=== PATIENT | female | born 1995 | race Caucasian/White ===

== ENCOUNTER 2017-07-14 12:35 | Day surgery (SDC) | payer OTHER ==
[2017-07-14 13:04] VITALS: BMI 32.9
[2017-07-14 13:11] VITALS: BP 127/67; TEMP 98.3
[2017-07-14 13:46] LABS: Bilirubin Negative (Negative); Blood, Urine Negative (Negative); Clarity CLOUDY (Clear); Glucose, Urine (Dipstick) 250 mg/dL (Negative); Leukocyte Negative (Negative); Nitrite Negative (Negative); Protein, Urine (Dipstick) Trace mg/dL (Neg-Trace); Specific Gravity, Urine 1.029 (1.002-1.036); pH, Urine 6.5 (5.0-9.0)
[2017-07-14 14:09] LABS: #Eosinphils 0.3 thou/uL (0.0-0.7); #Lymphocytes 2.3 thou/uL (1.20-3.40); #Monocytes 0.9 thou/uL (0.11-0.59); #Neutrophils 11.1 thou/uL (1.40-6.50); %Basophils 0.2 % (0.0-1.0); %Eosinophils 2.2 % (0.0-10.0); %Lymphocytes 15.7 % (21.0-51.0); %Monocytes 6.1 % (0.0-10.0); %Neutrophils 75.8 % (42.0-75.0); Hemoglobin 11.8 g/dL (12.0-16.0); Mean Corpuscular HGB CONC 34.6 g/dL (32.0-36.0); Mean Corpuscular Hemoglobin 29.1 pg (27.0-31.0); Mean Platelet Volume 7.3 fL (7.4-10.4); Platelet Count 202 thou/uL (130-400); RBC Distribution Width 12.3 % (11.5-14.5); Red Blood Cell (RBC) Count 4.05 mill/uL (4.20-5.40); White Blood Cell (WBC) Count 14.6 thou/uL (4.8-10.8)
[2017-07-14] MEDS ORDERED: Oxytocin 10 UNITS/ML VIAL ONE (16:13)
[2017-07-14 16:26] LABS: HBSAB Concentration 0.11 mIU/mL; Hep B Surf AB Non-Reactive (NonReactive)
[2017-07-14 16:27] LABS: HIV (1/2) Antibody/Antigen Non-Reactive (NonReactive); HIV 1/2 INDEX 0.23 S/CO (<1.00); Syphilis Antibody Nonreactive (Nonreactive); Syphilis Antibody Index 0.03 S/CO (<1.00 Non-Reactive)
--- NOTE | 2017-07-14 23:06 | SS ---
LABOR AND DELIVERY TRIAGE NOTE DATE OF EVALUATION: 07/14/2017 EVALUATING PHYSICIAN: Lorenzo Stahl M.D. CHIEF COMPLAINT: Pelvic pressure, frequent urination. HISTORY OF PRESENT ILLNESS: Ms. Johnson is a 20-year-old white G2, P1-0-0-1 with a reported estimate d date of confinement of 07/18/2017 who presents to triage complaining of pelvic pressure and frequen cy of urination. Of note is the fact that she has had no care. She denies nausea, vomiting , fever, chills, vaginal bleeding or rupture of membranes. PAST OBSTETRICAL HISTORY: Remarkable for a at term, which secondary to failure to progress of a 6 pound baby. She had no care during that . PAST MEDICAL HISTORY: Acid reflux. PAST SURGICAL HISTORY: as above. ALLERGIES: HYDROCODONE. CURRENT MEDICATIONS: Lbta-hll-[id number] vitamins. SOCIAL HISTORY: She does smoke intermittently. She denies alcohol or IV drug abuse. PHYSICAL EXAMINATION: VITAL SIGNS: Blood pressure is 127/67, temperature 98.3. GENERAL: She is alert and oriented, responsive and in no acute distress. ABDOMEN: Soft, nontender and gravid. Rob's exam is consistent with a term gestation. PELVIC: Shows the cervix to be closed, and high. A vertex is palpable, but ballottable. hear t tones are stable with good beat to beat variability. No decelerations are seen. No regular uterin e contractions are noted. LABORATORY DATA: White count 14.6, hemoglobin 11.8, hematocrit 34.0, and platelet count 202. Urinal ysis shows a specific gravity of 1.029 with a trace protein, negative ketones negative, blood, negati ve nitrites, negative bilirubin, and negative leukocyte esterase. ASSESSMENT: 1. Term intrauterine with no care. 2. No evidence of urinary tract infection or labor. PLAN: At this time, I have spoken with [facility] to have her follow up i n their clinic immediately next week. No care laboratories are drawn. The patient was give n strict precautions and is told to return should she notice regular contractions, vaginal bleeding o r ruptured membranes. She voices understanding of her discharge instructions and is sent home in goo d condition.
== END 2017-07-14 15:30 ==
LOC: L&D/OP 12:35
PROVIDERS: ATTEND Obstetrics & Gynecology
DX: O99.89 Other specified diseases and conditions complicating pregnancy, childbirth and the puerperium (principal); R10.2 Pelvic and perineal pain; O09.30 Supervision of pregnancy with insufficient antenatal care, unspecified trimester; O99.619 Diseases of the digestive system complicating pregnancy, unspecified trimester; K21.9 Gastro-esophageal reflux disease without esophagitis; O99.330 Smoking (tobacco) complicating pregnancy, unspecified trimester; Z3A.00 Weeks of gestation of pregnancy not specified; Z79.899 Other long term (current) drug therapy; Z88.5 Allergy status to narcotic agent; Z98.891 History of uterine scar from previous surgery
CPT/HCPCS: 36415; 81003; 85025; 86706; 86762; 86780; 86850; 86900; 86901; 87389; 99282; J2590

== ENCOUNTER 2017-07-27 19:11 | Day surgery (SDC) | payer OTHER ==
[2017-07-27 19:50] VITALS: BP 127/69; TEMP 99.1; BMI 34.7
--- NOTE | 2017-07-27 20:53 | PDOC.LDHP ---
Addendum entered and electronically signed by Bob Florez DO 07/27/17 23: 40: BPP 10/17. Ok for DC to home with instruction to f/u with pcp w/in one week. Original Note: Labor and Delivery H&P Chief complaint: decreased movement HPI: Patient is a 22 year old female @ 37.4 weeks by 12 wk sono (ELVIS 08/13/2017) who was sent to L&D from clinic for decreased movement and 6/10 BPP. Pt reports decreased movement over the past 3 days. She complains of mucousy discharge. She denies hematuria, dysuria, loss of fluid, contractions, ENGEL and vision changes. Dating criteria: first trimester ultrasound Grav: 3 Para: 1 Current complications: other (Late to care) Abnormal US findings: No Current medications: none Previous surgical history: low tranverse CS (arrest of dilation) Social history: tobacco use, drug use (marijuana per clinic record) - Physical Exam Vital signs reviewed and normal: yes General: NAD Heart: RRR Lungs: CTAB Abdomen: gravid FHT: category 1 - OB Labs Blood type: A RH: positive Antibody Screen: unknown HIV: negative RPR: negative HEPSAg: negative 1 hour GCT: negative GBS: negative Urine drug screen: positive Rubella: immune - Assessment Decreased movement - Plan Plan: observation in L&D -: - Vitals stable. Category I strip. - Pt instructed to eat and we will PO hydrate. - Repeat BPP. If normal will discharge with follow-up to PCP. <Rosina Barfield - Last Filed: 07/27/17 21:16> <Zainab Bower - Last Filed: 07/28/17 16:24> Allergies/Adverse Reactions: Allergies Allergy/AdvReac Type Severity Reaction Status Date / Time hydrocodone AdvReac Emesis Verified 07/27/17 19:51 Attending Addendum - Attending Addendum Date/Time: 07/27/171 I personally evaluated the patient and discussed the management with Dr. Barfield I agree with the History, Examination, Assessment and Plan documented above with any addition or exceptions noted below. 22 yo female at 37.4 wks by 12 wk sono here for testing due to decrease movement and BPP/NST of 6/10 in the office. Patient has now eaten. +FM. Reactive and reassuring NST and continuous monitoring. Repeat BPP 10/17. Ok to d/c to home. Will follow up with PCP next week. Armin <Zainab Bower - Last Filed: 07/28/17 16:24>
--- NOTE | 2017-07-27 23:50 | ULT ---
BIOPHYSICAL PROFILE 07/27/17 HISTORY: Decreased movement in doctor's office. Multiple longitudinal and transverse images of an intrauterine is obtained using a multiher tz curvilinear transducer. Real time and spectral waveform doppler analysis used to evaluate the fetu s. Images demonstrate a viable intrauterine . Cardiac activity measures 137 beats per minute. Amniotic fluid index measures 8.7 cm. The fetus is in the cephalic presentation. The placenta is towards the maternal right. BIOPHYSICAL PROFILE: tone = 2 breathing = 2 movement = 2 Amniotic fluid volume = 2. Composite = 8 out of 8. IMPRESSION: Biophysical profile measures 8 out of 8. POS: [facility]
== END 2017-07-28 00:02 | disposition home or self-care (01) ==
LOC: L&D/OP 19:11
PROVIDERS: ATTEND Student in an Organized Health Care Education/Training Program
DX: O36.8130 Decreased fetal movements, third trimester, not applicable or unspecified (principal); O99.333 Smoking (tobacco) complicating pregnancy, third trimester; Z3A.37 37 weeks gestation of pregnancy; Z79.899 Other long term (current) drug therapy; Z88.5 Allergy status to narcotic agent
CPT/HCPCS: 76819; 99282

== ENCOUNTER 2017-08-01 23:20 | Day surgery (SDC) | payer OTHER ==
[2017-08-02 00:07] LABS: Amnisure Internal Control QC ACCEPTABLE (ACCEPTABLE)
[2017-08-02 00:16] LABS: Amnisure Test No Membranes Rupture (No Rupture)
[2017-08-02 00:26] VITALS: TEMP 99.3; BMI 34.7
--- NOTE | 2017-08-02 01:55 | PDOC.LDHP ---
Labor and Delivery H&P Chief complaint: loss of fluid HPI: Abby Johnson is a 22 year old @ 38.2 weeks by 12 wk sono (ELVIS of 08/13/17) who presents tonight to the L&D for loss of fluid. She states late last night she started noticing some clear fluid discharge. She denies any vaginal bleeding, contractions. +FM. Denies any hematuria/dysuria, headaches or vision changes. Current gestational age (weeks): 38 (38.2) Due date: 08/13/17 Dating criteria: first trimester ultrasound Grav: 3 Para: 1 Current complications: other (late to care) Abnormal US findings: No Current medications: none Previous surgical history: low tranverse CS Social history: tobacco use, drug use (marijuana) - Physical Exam Vital signs reviewed and normal: yes General: NAD, resting Heart: RRR Lungs: nonlabored breathing Abdomen: gravid Extremeties: no edema FHT: category 1 [place] contractions every: none - Vaginal Exam cm dilated: 1 Effacement: 0% Station: -3 - OB Labs Blood type: A RH: positive Antibody Screen: unknown HIV: negative RPR: negative HEPSAg: negative 1 hour GCT: negative GBS: negative Urine drug screen: positive Rubella: immune - Assessment Vaginal Discharge - Plan -: 22 year old at 38.2 wks presents because she is concerned that her water broke. 1) sIUP: no contractions, check was 1/thick. Amnisure was negative. Patient scheduled for repeat section on August 08. Patient is clear for discharge. Keep scheduled follow up appointments. <David Hall - Last Filed: 08/02/17 01:51> <Neel Roblero - Last Filed: 08/02/17 07:17> Allergies/Adverse Reactions: Allergies Allergy/AdvReac Type Severity Reaction Status Date / Time hydrocodone AdvReac Emesis Verified 08/02/17 00:12 Attending Addendum - Attending Addendum Date/Time: 08/02/17 0714 I personally evaluated the patient and discussed the management with Dr. Hall. I agree with and repeated resendiz portions the History, Examination, Assessment and Plan documented above with any addition or exceptions noted below. Upon further review she had recent relations, which she feels explains her symptoms. Amnisure negative. Cat 1, no contractions. Ok for discharge. <Neel Roblero - Last Filed: 08/02/17 07:17>
== END 2017-08-02 01:30 | disposition home or self-care (01) ==
LOC: L&D/OP 23:20
PROVIDERS: ATTEND Emergency Medicine
DX: O99.89 Other specified diseases and conditions complicating pregnancy, childbirth and the puerperium (principal); N89.8 Other specified noninflammatory disorders of vagina; O99.333 Smoking (tobacco) complicating pregnancy, third trimester; F17.200 Nicotine dependence, unspecified, uncomplicated; Z79.899 Other long term (current) drug therapy; Z3A.38 38 weeks gestation of pregnancy; Z88.5 Allergy status to narcotic agent
CPT/HCPCS: 84112; 99283

== ENCOUNTER 2017-08-08 09:15 | Inpatient (IN) | payer OTHER ==
--- NOTE | 2017-08-07 19:53 | PDOC.LDHP ---
Labor and Delivery H&P Chief complaint: scheduled section HPI: 22 y/o @ 39.2 WGA by 12.0 wk [facility] presents for scheduled repeat . The patient had a prior . She had poor care due to being late to care, presented late in her 3rd trimester. She reports movement. Denies LOF, vaginal bleeding, vaginal discharge, contractions. Current gestational age (weeks): 39 (39w2d) Due date: 08/13/17 Dating criteria: first trimester ultrasound Grav: 3 Para: 1 OB History Details: Term pLTCS for failure to progress in 2014, 1st trimester SAB Current complications: other (Late to care, substance abuse [ marijuana and tobacco]) Abnormal US findings: No Past Medical History: Depression Current medications: pre-claudine vitamins (Started during late 3rd trimester) Previous surgical history: low tranverse CS Social history: tobacco use, drug use (marijuana) - Physical Exam Vital signs reviewed and normal: yes General: NAD Heart: RRR Lungs: CTAB Abdomen: gravid Extremeties: trace edema FHT: category 1, variability present - OB Labs Blood type: A RH: positive Antibody Screen: negative HIV: negative RPR: negative HEPSAg: negative 1 hour GCT: negative GBS: negative Urine drug screen: positive Rubella: immune - Assessment L&D Assessment: scheduled repeat section 1. 22 y/o @ 39.2 WGA by 12.0 wk [facility] -rLTCS -Anesthesia consult for spinal -Ancef -LR @ 125 2. h/o Polysubstance abuse during -UDS -Case Management consult -CPS 3. Late to care - Plan Plan: to OR for section, informed consent obtained, anesthesia consult for pain management <Salina Vicente - Last Filed: 08/08/17 14:46> <Sabrina Morales - Last Filed: 08/08/17 20:15> Allergies/Adverse Reactions: Allergies Allergy/AdvReac Type Severity Reaction Status Date / Time hydrocodone AdvReac Emesis Verified 08/02/17 00:12 Attending Addendum - Attending Addendum Date/Time: 08/08/172006 I personally evaluated the patient and discussed the management with Dr. Vicente I agree with the History, Examination, Assessment and Plan documented above with any addition or exceptions noted below - 22 yo @39.2 weeks admitted for elective repeat . Category 1 FHTs. Risks/benefits discussed and patient verbalized understanding. Plan to proceed with Csection. <Sabrina Morales - Last Filed: 08/08/17 20:15>
[~2017-08-08 09:15] MED LIST: Bicitra 30 ML UDCUP PO SCH; CEFAZOLIN/Water 2 GM/20 ML SYRINGE SLOW IVP SCH; Lactated Ringer's 1,000 ML IV SCH; Ondansetron HCl/PF 4 MG/2 ML Vial IVP PRN; Promethazine HCl 25 MG/ML VIAL IM PRN
[2017-08-08 10:19] LABS: Hemoglobin 11.2 g/dL (12.0-16.0); Mean Corpuscular Hemoglobin 28.2 pg (27.0-31.0); Mean Platelet Volume 7.9 fL (7.4-10.4); Platelet Count 197 thou/uL (130-400); RBC Distribution Width 13.5 % (11.5-14.5); Red Blood Cell (RBC) Count 3.96 mill/uL (4.20-5.40)
[2017-08-08 11:11] LABS: Syphilis Antibody Nonreactive (Nonreactive); Syphilis Antibody Index 0.03 S/CO (<1.00 Non-Reactive)
[2017-08-08 11:12] LABS: HBSAg Index 0.24 S/CO (0-0.99); Hep B Surf Ag Non-Reactive S/CO (NonReactive)
[2017-08-08 11:19] VITALS: BMI 34.7
[2017-08-08] MEDS ORDERED: Midazolam HCl 2 mg/2 ml Vial ONE ×2 (12:04→13:42)
[2017-08-08] MEDS ORDERED: Morphine PF 1 MG/ML SYR ONE (12:05)
[2017-08-08] MEDS ORDERED: Oxytocin 10 UNITS/ML VIAL ONE ×5 (12:06→13:41)
[2017-08-08] MEDS ORDERED: Bupivacaine 0.75% W/DEXTROSE 8.25% 2 ML AMP ONE (12:07)
[2017-08-08] MEDS ORDERED: Ondansetron HCl/PF 4 MG/2 ML Vial ONE (12:07)
[2017-08-08] MEDS ORDERED: ePHEDrine/0.9% NaCl/PF SYRINGE 50 mg/10 ml ONE ×2 (12:24→14:30)
[2017-08-08] MEDS ORDERED: Fentanyl 100 MCG/2 ML VIAL ONE (13:34)
[2017-08-08] MEDS ORDERED: Ondansetron HCl/PF 4 MG/2 ML Vial IVP PRN ×2 (13:38→15:48)
[2017-08-08] MEDS ORDERED: Meperidine HCl/PF 25 MG/ML VIAL SLOW IVP PRN (13:38)
[2017-08-08] MEDS ORDERED: HYDROmorphone 2 MG/ML VIAL SLOW IVP PRN (13:38)
[2017-08-08] MEDS ORDERED: Ketorolac Tromethamine 30 MG/ML VIAL IVP SCH (13:45)
[2017-08-08 13:47] LABS: Amphetamine Not Detected (NotDetected); Barbiturates Screen Not Detected (NotDetected); Benzodiazepine Screen Not Detected (NotDetected); Cocaine Metabolite Screen Not Detected (NotDetected); Medtox Control Line Valid? VALID (VALID); Medtox Reader # READER 4; Methadone Not Detected (NotDetected); Methamphetamine Not Detected (NotDetected); Opiate Screen Not Detected (NotDetected); Oxycodone Screen Not Detected (NotDetected); Phencyclidine (PCP) Not Detected (NotDetected); THC/Cannabinoid Screen Not Detected (NotDetected); Tricyclic Screen Not Detected (NotDetected)
[2017-08-08] MEDS ORDERED: Meperidine HCl/PF 25 MG/ML VIAL ONE (14:11)
[2017-08-08] MEDS ORDERED: NS / Oxytocin 40 units/1000ml 1,000 ML ONE (14:38)
--- NOTE | 2017-08-08 14:52 | PDOC.OPDEL ---
OB Operative/Delivery Note Delivery Dr/Surgeon: Dr. Salina Vicente, Dr. Andrés Martell, Dr. Laura Tamayo, Dr. Sabrina Morales Pre-Delivery Diagnosis: scheduled section Procedure/Post Delivery Dx: repeat low transverse CS Weeks gestation: 39 (39w2d) Anesthesia: spinal - Findings A Sex: male Weight: 4.172 kg - 1 min: 8 - 5 min: 9 - Additional Findings/Plan Placenta delivered: spontaneous findings: low transverse hysterotomy without extension (Vacuum assisted ), other (submucosal necrotic vs degenerating fibroid on L apex of hysterotomy) Estimated blood loss: 500 mL Compilations/Other Findings: Preoperative Diagnosis: 1)Term intrauterine 2)Previous 3)h/o marijuana abuse during 4)h/o tobacco abuse during Postoperative Diagnosis: 1)Term intrauterine 2)Previous 3)h/o marijuana abuse during 4)h/o tobacco abuse during 5)necrotic vs degenerating submucosal fibroid Anesthesia: spinal Indications: The patient is a 22 year old female at 39.2 weeks gestation who presents for a repeat scheduled . Procedure in Detail: After risks, benefits, and alternatives were explained to the patient, she gave informed consent. Pre-operative antibiotics included Cefazolin 2 gram IV. The patient was taken to the operating room and spinal anesthesia was initiated. She was placed in the supine position with a left tilt and prepped and draped in usual sterile fashion. A Pfannenstiel incision was made with a scalpel and carried down to the level of the fascia which was sharply nicked. The fascial cut was extended bilaterally with Stearns sissors. The inferior and superior edges of the cut fascial edges were elevated with Rhina clamps and the underlying rectus muscles were sharply and bluntly dissected free. There were moderate adhesions between the fascia and the rectus. The recti were divided digitally and retracted manually. The peritoneum was entered bluntly and retracted manually. Bladder blade was placed. Bladder flap was created with Metzenbaum scissors. A low transverse score was made with the scalpel and the uterus was entered in the midline with the scalpel. Clear fluid was seen. The hysterotomy was extended manually. The was noted to be vertex in ROT position and was not able to be delivered with just fundal pressure, so was delivered by fundal pressure with vacuum assistance using one pull and no "pop-off's". Mouth and nares were bulb suctioned. Cord clamped and cut and grossly normal male/female was handed to waiting nurse. Cord blood was obtained. Placenta was manually extracted, found to be intact with 3 vessel cord and discarded. The uterus was externalized and the endometrium was curetted with a dry lap. The bladder blade was replaced and the uterus was inspected and found to have a submucosal necrotic vs degenerating fibroid on the left superior portion of the apex of the hysterotomy. Dr. Abel was called and visualized the fibroid in the OR and confirmed the diagnosis. Aspiration was attempted to confirm that it was not a hematoma and no blood was returned. The uterus was closed with a running locking 1-0 Monocryl suture followed by a running non-locking 1-0 Monocryl imbricating suture. Following this hemostasis was noted. The abdomen was irrigated with saline and suctioned free of clots. The uterus was internalized and the hysterotomy was again noted to be hemostatic. The fascia was closed with a running non-locking 1-0-Vicryl suture. The subcutaneous tissue was irrigated and there were no bleeders. The skin was approximated with omar and a pressure dressing was placed. All counts were correct. The patient tolerated the procedure well and was taken to the recovery room in stable condition. Post delivery plan: routine recovery <Salina Vicente - Last Filed: 08/08/17 14:50> Attending Addendum - Attending Addendum Date/Time: 08/08/172025 I personally evaluated the patient and discussed the management with Dr. Vicente. Repeat performed under my direct supervision. Viable male delivered with vacuum assistance due to ROT position with 1 pull. Apgars 8/9. Submucosal degenerating fibroid noted on examination of uterus located along left lateral and anterior area. EBL 500 mL. Ingpfant to nursery and mither to recovery in stable condition. Residents: Cinthia/Belkis/Jayshree <Sabrina Morales - Last Filed: 08/08/17 20:35>
[2017-08-08] MEDS ORDERED: Simethicone Chewable 80 MG TAB PO PRN (15:48)
[2017-08-08] MEDS ORDERED: Adacel (T-DAP) 0.5 ML VIAL IM ONE (15:48)
[2017-08-08] MEDS ORDERED: Lanolin Ointment 7 GM TUBE TOP PRN (15:48)
[2017-08-08] MEDS ORDERED: diphenhydrAMINE 25 MG CAP PO PRN (15:48)
[2017-08-08] MEDS ORDERED: Promethazine HCl 25 MG/ML VIAL IM PRN (15:48)
[2017-08-08] MEDS ORDERED: Bisacodyl 10 MG SUPP PR PRN (15:48)
[2017-08-08] MEDS ORDERED: HYDROcodone/Acetaminophen 5/325 mg Tablet PO PRN (15:48)
[2017-08-08] MEDS ORDERED: NS / Oxytocin 40 units/1000ml 1,000 ML IV SCH (15:48)
[2017-08-08] MEDS ORDERED: Naloxone HCl 0.4 mg/ml Vial IVP PRN ×2 (16:10)
[2017-08-08] MEDS ORDERED: Eucerin (Mineral Oil/Petrolatum,White) 30 gm Jar TOP PRN (16:10)
[2017-08-08] MEDS ORDERED: diphenhydrAMINE 50 MG/ML VIAL IVP PRN (16:10)
[2017-08-08] MEDS ORDERED: Naloxone HCl 0.4 mg/ml Vial IV PRN (16:10)
[2017-08-08] MEDS ORDERED: Communication Order-Pharmacy FS SCH (16:15)
[2017-08-08] MEDS: Ketorolac Tromethamine 30 MG/ML VIAL IVP PRN ×2 (16:37→22:46)
--- NOTE | 2017-08-08 16:57 | PDOC.PP ---
Post Progress Note Post Day #: 0 Subjective: Patient examined 4 hours post-op. Doing well. Reports that her abdomen feels sore. She is starting to get feeling in her legs and feet and can move her feet some. She is unsure if she is having much vaginal bleeding. She is tolerating clear liquids without any nausea. She is breast feeding and her son latched without difficulty. PO intake tolerated: yes Flatus: no Ambulation: no Vital Signs (12 hours) Temp Pulse Resp BP 08/08/17 16:10 98.0 F 74 18 112/55 L 08/08/17 11:15 98.6 F 93 18 Weight Weight 91.626 kg - Physical Examination General: NAD Cardiovascular: no m/r/g, RRR Respiratory: clear to auscultation bilaterally, non-labored breathing Abdominal: + bowel sounds, no distention, appropriately TTP Fundus firm & at: level of the umbilicus Extremities: negative homans (B) Skin: CS incision dry & intact (pressure dressing in place) Neurological: no gross focal deficits Psychiatric: A&Ox3, normal affect Result Diagrams: 08/08/17 10:05 Additional Labs: Post Labs Blood Type A POSITIVE 08/08/17 10:05 Hep Bs Antigen Non-Reactive S/CO (NonReactive) 08/08/17 10:05 (1) delivery delivered Code(s): O82 - ENCOUNTER FOR DELIVERY WITHOUT INDICATION Status: Acute Comment: 22 y/o ->2 @ 39.2 WGA by 12.0 wk [facility]- [facility] @ 1300 on 08/08/17. Evaluated 4 hours post-op -Routine post- care -ADAT, currently tolerating clears -PNV -Encourage breast feeding, consult senior financial consultant as pt has had difficulty breast feeding in the past -CM consult for polysubstance abuse during -Ibuprofen scheduled and [place] prn for pain control -Encourage ambulation once spinal has fully worn off -Remove patrick once ambulatory (2) Marijuana abuse Code(s): F12.10 - CANNABIS ABUSE, UNCOMPLICATED Status: Acute Comment: Patient used marijuana throughout . Last reported use about 1.5 weeks ago. UDS negative on admission -CM consult (3) Tobacco abuse Code(s): Z72.0 - TOBACCO USE Status: Acute Comment: Patient smoked cigarettes throughout -Joy Operator on cessation (4) Late care affecting Code(s): O09.30 - SUPRVSN OF PREG W INSUFFICIENT ANTENAT CARE, UNSP TRIMESTER Status: Acute Qualifiers: Trimester: unspecified trimester Qualified Code(s): O09.30 - Supervision of with insufficient care, unspecified trimester Comment: Patient was late to care, showing up late in 3rd trimester
[2017-08-08] MEDS ORDERED: Morphine 4 MG/ML VIAL SLOW IVP PRN (17:45)
[2017-08-08] MEDS: Acetaminophen 325 MG TAB PO SCH ×2 (18:20→22:45)
[2017-08-08] MEDS: Docusate Calcium (SURFAK) 240 MG CAP PO SCH (21:06)
[2017-08-09] MEDS ORDERED: HYDROcodone/Acetaminophen 5/325 mg Tablet PO PRN (04:15)
[2017-08-09] MEDS: Ketorolac Tromethamine 30 MG/ML VIAL IVP PRN (04:19)
[2017-08-09] MEDS: Acetaminophen 325 MG TAB PO SCH ×4 (06:49→23:30)
--- NOTE | 2017-08-09 06:59 | PDOC.PP ---
Post Progress Note Post Day #: 1 Subjective: Patient doing well. Reports some pain in the area of the incision when she got up to walk to the bathroom or when she is laughing, but is otherwise doing well. She reports flatus and tolerated full liquid diet last night without any nausea or vomiting. She reports lochia that is a little more than a period. She just had her patrick removed and has not voided on her own yet. PO intake tolerated: yes Flatus: yes Ambulation: yes Vital Signs (12 hours) Temp Pulse Resp BP Pulse Ox 08/09/17 04:19 98.3 F 81 18 08/09/17 00:25 98.1 F 77 18 107/55 L 98 08/08/17 20:15 98.5 F 94 18 109/58 L 97 Weight Weight 91.626 kg - Physical Examination General: NAD Cardiovascular: no m/r/g, RRR Respiratory: clear to auscultation bilaterally, non-labored breathing Abdominal: + bowel sounds, lochia (scant, per nursing documentation), no distention, appropriately TTP Fundus firm & at: umbilicus Extremities: negative homans (B) Skin: CS incision dry & intact (omar intact) Neurological: no gross focal deficits Psychiatric: A&Ox3, normal affect Result Diagrams: 08/08/17 10:05 Additional Labs: Post Labs Blood Type A POSITIVE 08/08/17 10:05 Hep Bs Antigen Non-Reactive S/CO (NonReactive) 08/08/17 10:05 (1) delivery delivered Code(s): O82 - ENCOUNTER FOR DELIVERY WITHOUT INDICATION Status: Acute Comment: 22 y/o ->2 @ 39.2 WGA by 12.0 wk US delivered via [facility]- rLTCS @ 1300 on 08/08/17. -Routine post- care -Tolerating PO -PNV -Encourage breast feeding -CM consult for polysubstance abuse during -Pain controlled -Encourage ambulation -f/u on ability to void now that patrick is removed (2) Marijuana abuse Code(s): F12.10 - CANNABIS ABUSE, UNCOMPLICATED Status: Acute Comment: Patient used marijuana throughout . Last reported use about 1.5 weeks ago. UDS negative on admission -CM consult (3) Tobacco abuse Code(s): Z72.0 - TOBACCO USE Status: Acute Comment: Patient smoked cigarettes throughout -Holiday Detector Operator on cessation (4) Late care affecting Code(s): O09.30 - SUPRVSN OF PREG W INSUFFICIENT ANTENAT CARE, UNSP TRIMESTER Status: Acute QualifierTitle: Trimester: unspecified trimester Qualified Code(s): O09.30 - Supervision of with insufficient care, unspecified trimester Comment: Patient was late to care, showing up late in 3rd trimester <Salina Vicente - Last Filed: 08/09/17 06:57> Vital Signs (12 hours) Temp Pulse Resp BP 08/09/17 17:41 98.5 F 88 18 112/64 08/09/17 16:00 98.1 F 90 20 08/09/17 12:32 98.1 F 90 20 114/67 08/09/17 12:15 98.1 F 90 20 08/09/17 08:55 98.8 F 78 18 08/09/17 08:00 98.8 F 78 18 115/63 Weight Weight 91.626 kg Result Diagrams: 08/09/17 07:01 Additional Labs: Post Labs Blood Type A POSITIVE 08/08/17 10:05 Hep Bs Antigen Non-Reactive S/CO (NonReactive) 08/08/17 10:05 <Sabrina Morales - Last Filed: 08/09/17 19:39> Attending Addendum - Attending Addendum Date/Time: 08/09/17 1930 I personally evaluated the patient and discussed the management with Dr. Tamayo I agree with the History, Examination, Assessment and Plan documented above with any addition or exceptions noted below- Patient without complaints. Tolerating diet. Ambulating. Pain well controlled. Afebrile VSS A/P: 1) POD#1 S/ P repeat C/S- H/H stable. Continue routine care. <Sabrina Morales - Last Filed: 08/09/17 19:39>
[2017-08-09 07:16] LABS: Hemoglobin 9.9 g/dL (12.0-16.0); Mean Corpuscular HGB CONC 33.8 g/dL (32.0-36.0); Mean Corpuscular Hemoglobin 28.3 pg (27.0-31.0); Mean Corpuscular Volume 83.8 fl (81.0-99.0); Mean Platelet Volume 7.3 fL (7.4-10.4); Platelet Count 155 thou/uL (130-400); RBC Distribution Width 13.7 % (11.5-14.5); Red Blood Cell (RBC) Count 3.49 mill/uL (4.20-5.40); White Blood Cell (WBC) Count 13.3 thou/uL (4.8-10.8)
[2017-08-09] MEDS ORDERED: Ferrous Sulfate 325 MG TAB PO SCH ×2 (08:18→08:30)
[2017-08-09] MEDS: traMADol HCl 50 MG TAB PO PRN ×3 (09:55→21:39)
[2017-08-09] MEDS: Prenatal Vitamin 1 TAB PO SCH (09:55)
[2017-08-09] MEDS: Docusate Calcium (SURFAK) 240 MG CAP PO SCH ×2 (09:55→21:39)
[2017-08-09] MEDS: Ferrous Sulfate 325 MG TAB PO SCH (17:58)
[2017-08-09] MEDS: Ibuprofen 800 MG TAB PO SCH (21:39)
[2017-08-10] MEDS: Acetaminophen 325 MG TAB PO SCH ×4 (04:26→22:32)
[2017-08-10] MEDS: Ibuprofen 800 MG TAB PO SCH ×3 (06:07→21:28)
[2017-08-10] MEDS: traMADol HCl 50 MG TAB PO PRN ×3 (06:10→21:37)
--- NOTE | 2017-08-10 06:51 | PDOC.PP ---
Post Progress Note Post Day #: 2 Subjective: Patient doing well. Pain controlled. She has been up ambulating, reports flatus , is tolerating PO, has minimal lochia - mostly after breast feeding. Her main complaint is that her nipples are cracked and have been bleeding some with breast feeding. She has used the ointment, but doesn't feel like it is helping. PO intake tolerated: yes Flatus: yes Ambulation: yes Vital Signs (12 hours) Temp Pulse Resp BP 08/10/17 04:25 98.1 F 77 18 115/55 L 08/10/17 00:00 98.6 F 86 18 116/67 08/09/17 19:45 98.3 F 95 20 126/83 Weight Weight 91.626 kg - Physical Examination General: NAD Cardiovascular: no m/r/g, RRR Respiratory: clear to auscultation bilaterally, non-labored breathing Abdominal: + bowel sounds, lochia (minimal), no distention, appropriately TTP Fundus firm & at: 1cm below the umbilicus Extremities: negative homans (B) Skin: CS incision dry & intact (omar in place) Psychiatric: A&Ox3, normal affect Result Diagrams: 08/09/17 07:01 Additional Labs: Post Labs Blood Type A POSITIVE 08/08/17 10:05 Hep Bs Antigen Non-Reactive S/CO (NonReactive) 08/08/17 10:05 (1) delivery delivered Code(s): O82 - ENCOUNTER FOR DELIVERY WITHOUT INDICATION Status: Acute Comment: 22 y/o ->2 @ 39.2 WGA by 12.0 wk [facility] @ 1300 on 08/08/17. -Routine post- care -Tolerating PO -PNV -Encourage breast feeding, professional housing consultant following -Continue lanolin ointment for help with comfort -CM consult for polysubstance abuse during - CPS planning to come by today -Pain controlled with tramadol, ibuprofen, and tylenol -Encourage ambulation (2) Marijuana abuse Code(s): F12.10 - CANNABIS ABUSE, UNCOMPLICATED Status: Acute Comment: Patient used marijuana throughout . Last reported use about 1.5 weeks ago. UDS negative on admission -CM consult, CPS is coming by today to speak to her (3) Tobacco abuse Code(s): Z72.0 - TOBACCO USE Status: Acute Comment: Patient smoked cigarettes throughout -Coremaking Machine Setter on cessation (4) Late care affecting Code(s): O09.30 - SUPRVSN OF PREG W INSUFFICIENT ANTENAT CARE, UNSP TRIMESTER Status: Acute QualifierTitle: Trimester: unspecified trimester Qualified Code(s): O09.30 - Supervision of with insufficient care, unspecified trimester Comment: Patient was late to care, showing up late in 3rd trimester <Salina Vicente - Last Filed: 08/10/17 06:49> Vital Signs (12 hours) Temp Pulse Resp BP 08/10/17 08:31 98.0 F 77 20 121/76 08/10/17 08:10 98.0 F 77 20 08/10/17 04:25 98.1 F 77 18 115/55 L Weight Weight 91.626 kg Result Diagrams: 08/09/17 07:01 Additional Labs: Post Labs Blood Type A POSITIVE 08/08/17 10:05 Hep Bs Antigen Non-Reactive S/CO (NonReactive) 08/08/17 10:05 <Sabrina Morales - Last Filed: 08/10/17 12:49> Attending Addendum - Attending Addendum Date/Time: 08/10/17 1247 I personally evaluated the patient and discussed the management with Dr. Vicente I agree with the History, Examination, Assessment and Plan documented above with any addition or exceptions noted below- Patient without complaints. Pain controlled with current regimen. Tolerating diet and ambulating well. Afebrile VSS. A/P: 1) POD#2 s/p repeat - continue routine care. <Sabrina Morales - Last Filed: 08/10/17 12:49>
[2017-08-10] MEDS: Ferrous Sulfate 325 MG TAB PO SCH ×2 (08:59→16:26)
[2017-08-10] MEDS: Prenatal Vitamin 1 TAB PO SCH (08:59)
[2017-08-10] MEDS: Docusate Calcium (SURFAK) 240 MG CAP PO SCH ×2 (08:59→21:29)
[2017-08-10] MEDS: Mupirocin 2% Ointment 22 GM Tube TOP SCH ×2 (16:25→21:34)
[2017-08-10] MEDS: Hydrocortisone 1% Cream 1.5 GM Packet TOP SCH ×2 (16:25→21:35)
[2017-08-11] MEDS: Acetaminophen 325 MG TAB PO SCH ×2 (05:07→09:41)
[2017-08-11] MEDS: traMADol HCl 50 MG TAB PO PRN ×2 (05:51→13:48)
[2017-08-11] MEDS: Ibuprofen 800 MG TAB PO SCH ×2 (05:52→13:47)
--- NOTE | 2017-08-11 07:33 | PDOC.PP ---
Post Progress Note Post Day #: 3 Subjective: Patient doing well. Pain is improving. She only gets pain when she gets up to walk. She reports that her lochia is minimal and is really only when she breastfeeds. She is having difficulty with cracked/bleeding nipples. She is ambulating, voiding, and reports flatus. She is tolerating PO. PO intake tolerated: yes Flatus: yes Ambulation: yes Vital Signs (12 hours) Temp Pulse Resp BP 08/10/17 20:00 98.2 F 82 20 127/68 Weight Weight 91.626 kg - Physical Examination General: NAD Cardiovascular: no m/r/g, RRR Respiratory: clear to auscultation bilaterally, non-labored breathing Abdominal: + bowel sounds, lochia (minimal), no distention, appropriately TTP Fundus firm & at: 2cm below the umbilicus Extremities: negative homans (B) Skin: CS incision dry & intact (omar intact), no rash Neurological: no gross focal deficits Psychiatric: A&Ox3, normal affect Result Diagrams: 08/09/17 07:01 Additional Labs: Post Labs Blood Type A POSITIVE 08/08/17 10:05 Hep Bs Antigen Non-Reactive S/CO (NonReactive) 08/08/17 10:05 (1) delivery delivered Code(s): O82 - ENCOUNTER FOR DELIVERY WITHOUT INDICATION Status: Acute Comment: 22 y/o ->2 @ 39.2 WGA by 12.0 wk US [facility] @ 1300 on 08/08/17. -Routine post- care -Tolerating PO -PNV -Encourage breast feeding, field service consultant following -Continue lanolin ointment for help with comfort -CM consult for polysubstance abuse during - CPS planning to come by today for safety plan -Pain controlled with tramadol, ibuprofen, and tylenol -Encourage ambulation -Plans for Nexplanon for contraception (2) Marijuana abuse Code(s): F12.10 - CANNABIS ABUSE, UNCOMPLICATED Status: Acute Comment: Patient used marijuana throughout . Last reported use about 1.5 weeks ago. 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 f/u in 4-[address] Vicente at [facility] <Salina Vicente - Last Filed: 08/11/17 07:32> Vital Signs (12 hours) Temp Pulse Resp BP 08/11/17 09:00 97.9 F 85 18 08/11/17 08:15 97.9 F 85 18 115/75 Weight Weight 91.626 kg Result Diagrams: 08/09/17 07:01 Additional Labs: Post Labs Blood Type A POSITIVE 08/08/17 10:05 Hep Bs Antigen Non-Reactive S/CO (NonReactive) 08/08/17 10:05 <Sabrina Morales - Last Filed: 08/11/17 11:04> Attending Addendum - Attending Addendum Date/Time: 08/11/17 1103 I personally evaluated the patient and discussed the management with Dr. Vicente I agree with the History, Examination, Assessment and Plan documented above with any addition or exceptions noted below- Patient wihtout complaints. Tolerating diet. Ambulating well. Afebrile VSS. A/P: 1) POD#3 s/p repeat c- section- D/C home today. [place] removed. <Sabrina Morales - Last Filed: 08/11/17 11:04>
[2017-08-11 08:17] VITALS: BP 115/75; TEMP 97.9
[2017-08-11] MEDS: Ferrous Sulfate 325 MG TAB PO SCH (09:32)
[2017-08-11] MEDS: Prenatal Vitamin 1 TAB PO SCH (09:32)
[2017-08-11] MEDS: Hydrocortisone 1% Cream 1.5 GM Packet TOP SCH (09:33)
[2017-08-11] MEDS: Docusate Calcium (SURFAK) 240 MG CAP PO SCH (09:33)
[2017-08-11] MEDS: Mupirocin 2% Ointment 22 GM Tube TOP SCH (09:33)
== END 2017-08-11 14:15 | disposition home or self-care (01) | DRG 765 ==
LOC: L&D 09:15 → 3SW 16:01
PROVIDERS: ADMIT Family Medicine; ATTEND Family Medicine
PROC: 10D00Z1 Extraction of Products of Conception, Low, Open Approach (ICD-10-PCS; principal; 2017-08-08)
DX: O34.211 Maternal care for low transverse scar from previous cesarean delivery (principal); O99.324 Drug use complicating childbirth; F12.10 Cannabis abuse, uncomplicated; O34.13 Maternal care for benign tumor of corpus uteri, third trimester; D25.0 Submucous leiomyoma of uterus; O99.334 Smoking (tobacco) complicating childbirth; F17.210 Nicotine dependence, cigarettes, uncomplicated; O36.63X0 Maternal care for excessive fetal growth, third trimester, not applicable or unspecified; Z3A.39 39 weeks gestation of pregnancy; Z37.0 Single live birth
CPT/HCPCS: 36415; 51702; 80306; 85027; 86780; 86850; 86900; 86901; 87340; J1885; J2175; J2250; J2270; J2274; J2405; J2590; J3010; J3490

== ENCOUNTER 2018-04-04 01:12 | Emergency (ER) | payer OTHER ==
[2018-04-04] MEDS ORDERED: Bupivacaine 0.5% 10 ML VIAL ONE (01:50)
== END 2018-04-04 02:16 | disposition home or self-care (01) ==
LOC: ERS 01:12
DX: K02.9 Dental caries, unspecified (principal); F41.9 Anxiety disorder, unspecified; F31.9 Bipolar disorder, unspecified; F17.210 Nicotine dependence, cigarettes, uncomplicated
CPT/HCPCS: 64400; J3490

== ENCOUNTER 2018-08-26 15:24 | Emergency (ER) | payer OTHER, SELFPAY ==
[2018-08-26 16:20] LABS: Bilirubin Negative (Negative); Blood, Urine Negative (Negative); Clarity CLEAR (Clear); Glucose, Urine (Dipstick) Negative (Negative); Leukocyte Small (Negative); Nitrite Negative (Negative); Pregnancy Test - Urine (BHCG) Negative (Negative); Pregu Control Background? CLEAR/WHITE (CLR/WHITE); Pregu Control Bar Appear? YES (CONTROL BAR); Protein, Urine (Dipstick) Negative (Neg-Trace); Specific Gravity 1.017 (1.002-1.036); Specific Gravity, Urine 1.017 (1.002-1.036); Urobilinogen 0.2 mg/dL (0.2-1.0)
[2018-08-26 16:23] LABS: Bacteria/HPF None Seen HPF (None Seen); Hyaline Casts/LPF 0-3 HYALINE CAST LPF (0-3 Hyaline); RBC/HPF 0-3 HPF (0-3); Squamous Epithelial 0-3 HPF (0-3)
[2018-08-27 21:54] LABS: Chlamydia by PCR Not Detected (NotDetected); GC by PCR Not Detected (NotDetected)
== END 2018-08-26 17:32 | disposition home or self-care (01) ==
LOC: ERS 15:24
DX: N72 Inflammatory disease of cervix uteri (principal); F31.9 Bipolar disorder, unspecified; F41.0 Panic disorder [episodic paroxysmal anxiety]; F17.210 Nicotine dependence, cigarettes, uncomplicated; Z79.899 Other long term (current) drug therapy
CPT/HCPCS: 81003; 81015; 81025; 87086; 87480; 87491; 87510; 87591; 87660

== ENCOUNTER 2018-09-17 01:16 | Emergency (ER) | payer SELFPAY | END 2018-09-17 01:59 | disposition left against medical advice (07) | LOC: ERS 01:16 | DX: Z53.21 Procedure and treatment not carried out due to patient leaving prior to being seen by health care provider (principal) ==

== ENCOUNTER 2018-10-18 13:31 | Emergency (ER) | payer SELFPAY ==
--- NOTE | 2018-10-18 15:06 | RAD ---
LEFT FOOT 3 VIEWS: HISTORY: injury left foot pain FINDINGS: There is a nondisplaced fracture involving the base of the proximal phalanx of the little toe/of digi t. The fracture line does not extend into the articular surface.
== END 2018-10-18 15:31 | disposition home or self-care (01) ==
LOC: ERS 13:31
DX: S92.515A Nondisplaced fracture of proximal phalanx of left lesser toe(s), initial encounter for closed fracture (principal); K03.81 Cracked tooth; F31.9 Bipolar disorder, unspecified; F41.0 Panic disorder [episodic paroxysmal anxiety]; F17.210 Nicotine dependence, cigarettes, uncomplicated; W20.8XXA Other cause of strike by thrown, projected or falling object, initial encounter

== ENCOUNTER 2018-11-13 00:12 | Emergency (ER) | payer SELFPAY | END 2018-11-13 00:38 | disposition left against medical advice (07) | LOC: ERS 00:12 | DX: Z53.21 Procedure and treatment not carried out due to patient leaving prior to being seen by health care provider (principal) ==

== ENCOUNTER 2019-01-02 16:20 | Emergency (ER) | payer MEDICAID | END 2019-01-02 17:32 | disposition home or self-care (01) | LOC: ERS 16:20 | DX: O99.612 Diseases of the digestive system complicating pregnancy, second trimester (principal); K03.81 Cracked tooth; K02.9 Dental caries, unspecified; O99.342 Other mental disorders complicating pregnancy, second trimester; F31.9 Bipolar disorder, unspecified; F41.0 Panic disorder [episodic paroxysmal anxiety]; O99.332 Smoking (tobacco) complicating pregnancy, second trimester; F17.210 Nicotine dependence, cigarettes, uncomplicated; Z71.6 Tobacco abuse counseling; Z3A.16 16 weeks gestation of pregnancy | CPT/HCPCS: 99406 ==

== ENCOUNTER 2019-04-22 14:43 | Outpatient (CLI) | payer OTHER ==
--- NOTE | 2019-04-22 16:22 | ULT ---
OB ULTRASOUND: 04/22/19 HISTORY: anatomy. FINDINGS: A single live intrauterine gestation is seen with measurements corresponding to an estimated gestatio nal age of 35 weeks, 3 days and ELVIS at 05/24/2019. The estimated weight measures 2719 grams or 6 lb. This corresponds to 98th percentile by Hadlock criteria. BIOMETRIC: BPD 8.56 cm 34 weeks, 4 days HC 31.82 cm 35 weeks, 6 days AC 32.23 cm 36 weeks, 2 days FL 6.78 cm 34 weeks, 6 days heart rate measures 130 beats per minute. Placenta is anteriorly located without evidence of pl acenta previa. JOSESITO measures 12.7 cm. Cervix is not adequately visualized for measurement. A three vessel cord, cord insertion, kidneys, bladder, stomach, four chamber heart, cerebellum, spine, lips/nose, and lower extremities are visualized. The lateral ventricles and upper extremities are not satisfactorily visualized. IMPRESSION: Single live intrauterine gestation of 35 weeks, 3 days estimated gestational age and ELVIS at 05/24/2019 . POS: CHANDRAKANT
== END 2019-04-22 14:44 | disposition home or self-care (01) ==
LOC: BICULT 14:43
PROVIDERS: ATTEND Nurse Practitioner
DX: O09.93 Supervision of high risk pregnancy, unspecified, third trimester (principal); Z3A.35 35 weeks gestation of pregnancy
CPT/HCPCS: 76805

== ENCOUNTER → 2019-04-25 | Day surgery (SDC) | payer OTHER ==
[~2019-04-25] MED LIST changes: -Bicitra 30 ML UDCUP PO SCH; -CEFAZOLIN/Water 2 GM/20 ML SYRINGE SLOW IVP SCH; -Ondansetron HCl/PF 4 MG/2 ML Vial IVP PRN; +Ondansetron ODT 8 MG TAB SL SCH; +Ondansetron PF 4 MG/2 ML Vial ONE; -Promethazine HCl 25 MG/ML VIAL IM PRN; +hydrALAZINE 20 MG/ML VIAL SLOW IVP PRN
[2019-04-25 23:36] VITALS: BMI 33.6
--- NOTE | 2019-04-25 23:59 | PDOC.FPROB ---
FMR OB H&P: HPI - History of Present Illness Chief Complaint: N/V, abdominal pain Indentification: 24 y/o @ 36.3 WGA History of Present Illness: Patient presents with N/V for the past 4 hours. Reports one episode of emesis. Describes abdominal cramping and aching. She has been able to tolerate food and water, but just feels poorly. Denies fevers. Reports 2 episodes today of blood on the toilet paper after using the bathroom that she thinks may have been her mucous plug. Denies other vaginal d/c or bleeding. Denies LOF. Endorses movement. Primary Care Physician: Dr. Rose FMR OB H&P: History - Past Medical History PMH: Denies - OB History OB History: 2 term sections - Surgical History Sx History: x2 - Social History Social History: Denies tobacco or EtOH use. Reports marijuana and methamphetamine abuse throughout , but went into rehab in February and has been clean ever since. - Family History Family History: Father - seizures Mother - kidney dz FMR OB H&P: Medications - Current Home Medications: Medication Instructions Recorded Confirmed Type 21/Iron Fu/Folic Acid 1 tablet PO DAILY 07/27/17 08/08/17 History [ Complete Caplet] Acetaminophen [Tylenol Regular 650 mg PO Q6H tab 08/11/17 04/25/19 Rx Strength] Allergies/Adverse Reactions: Allergies Allergy/AdvReac Type Severity Reaction Status Date / Time hydrocodone AdvReac Emesis Verified 04/25/19 23:30 FMR OB H&P: ROS - Review of Systems General: denies: fever/chills, weight/appetite/sleep changes Eyes: denies: vision changes, double vision ENT: denies: rhinorrhea, sore throat Cardiovascular: denies: chest pain, edema Respiratory: denies: cough, shortness of breath Gastrointestinal: reports: abdominal pain, nausea, vomiting. denies: diarrhea, bright red blood Genitourinary (Female): reports: vaginal discharge. denies: dysuria, hematuria , contractions Musculoskeletal: denies: pain, swelling Neurologic: denies: numbness, weakness Integumentary: denies: itching, rash Endocrine: denies: cold intolerance, heat intolerance Hematologic/Lymphatic: denies: prolonged or excessive bleeding, enlarged lymph nodes FMR OB H&P: Vital Signs - Maternal Vital signs: O2 sat 99%, HR 89, RR 16, Temp 97.7, BP 124/78 - Heart Tones Baseline: 130 Variability: moderate Deceleration: absent Category: category 1 [place] contractions every: none FMR OB H&P: Physical Exam - Physical Exam General: NAD, awake, alert and oriented HEENT: normocephalic and atraumatic, conjunctiva clear, grossly normal vision, grossly normal hearing, other (mildly dry mucous membranes) Neck: supple, no LAD Heart: pulses present, no edema General: no respiratory distress Abdomen: soft, gravid, non-tender Musculoskeletal: normal gait and station, pulses present Neurological: no tremor, no focal deficit Skin: good tugor, capillary refill <2 seconds Lymphatic: no unusual bruising or bleeding, no purpura Psychiatric: intact recent and remote memory, good judgement and insight FMR OB H&P: A/P - Problem List (1) Current Visit: Yes Status: Acute Qualifiers: Weeks of gestation: 36 weeks Qualified Code(s): Z3A.36 - 36 weeks gestation of Assessment and Plan: No contractions or signs of labor -Continue routine f/u with Dr. Rose (2) Gastroenteritis Current Visit: Yes Status: Acute Code(s): K52.9 - NONINFECTIVE GASTROENTERITIS AND COLITIS, UNSPECIFIED Assessment and Plan: Will give dose of zofran and have pt drink fluids. If able to tolerate then will be able to d/c home with po zofran, if not able to tolerate then will give IVF. -Check CBC, CMP, UA (3) Mild dehydration Current Visit: Yes Status: Acute Code(s): E86.0 - DEHYDRATION Assessment and Plan: Plan as above Disposition: pending lab results and ability to tolerate PO fluids Discussion: Date/Time: 04/25/19 0027 This H&P was discussed with Dr. Stahl who agrees with the above documentation and plan. Signature: Salina Vicente MD, PGY-3 Addendum - Attending - Attending Attestation Date/Time: 04/26/19 7431 I personally evaluated the patient and discussed the management with Dr. vicente. I agree with the History, Examination, Assessment and Plan documented above.
[2019-04-26 00:19] LABS: #Basophils 0.1 thou/uL (0.0-0.2); #Eosinphils 0.2 thou/uL (0.0-0.7); #Lymphocytes 2.7 thou/uL (1.20-3.40); #Monocytes 1.1 thou/uL (0.11-0.59); #Neutrophils 12.6 thou/uL (1.40-6.50); %Basophils 0.4 % (0.0-1.0); %Eosinophils 1.2 % (0.0-10.0); %Lymphocytes 16.2 % (21.0-51.0); %Monocytes 6.4 % (0.0-10.0); %Neutrophils 75.8 % (42.0-75.0); Hemoglobin 10.8 g/dL (12.0-16.0); Mean Corpuscular HGB CONC 35.4 g/dL (32.0-36.0); Mean Corpuscular Hemoglobin 30.8 pg (27.0-31.0); Mean Platelet Volume 8.5 fL (7.4-10.4); Platelet Count 162 thou/uL (130-400); RBC Distribution Width 12.1 % (11.5-14.5); White Blood Cell (WBC) Count 16.7 thou/uL (4.8-10.8)
[2019-04-26 00:35] LABS: ALT (SGPT) 9 U/L (8-55); AST (SGOT) 12 U/L (5-34); Albumin 3.5 g/dL (3.5-5.0); Alkaline Phosphatase 126 U/L (40-110); Anion Gap 12 mmol/L (10-20); BUN (Urea Nitrogen) 13 mg/dL (7.0-18.7); Bilirubin, Total 0.2 mg/dL (0.2-1.2); Calc. Creatinine Clearance 184 mL/min (70-130); Calcium 8.9 mg/dL (7.8-10.44); Carbon Dioxide 23 mmol/L (22-29); Chloride 107 mmol/L (98-107); Estimated GFR-MDRD Greater than 90; Globulin 2.8 g/dL (2.4-3.5); Glucose 90 mg/dL (70-105); Potassium 3.8 mmol/L (3.5-5.1); Protein, Total 6.3 g/dL (6.0-8.3); Sodium 138 mmol/L (136-145)
[2019-04-26 01:58] LABS: Bacteria/HPF None Seen HPF (None Seen); Bilirubin Negative (Negative); Blood, Urine Negative (Negative); Clarity Clear (Clear); Glucose, Urine (Dipstick) Normal (Negative); Leukocyte Negative Leu/uL (Negative); Nitrite Negative (Negative); Protein, Urine (Dipstick) 20 mg/dL (Neg-Trace); RBC/HPF 0-3 HPF (0-3); Squamous Epithelial 0-3 HPF (0-3); Urobilinogen Normal mg/dL (Less than 2); WBC/HPF 0-3 HPF (0-3)
[2019-04-26 02:11] LABS: Urine Culture Reflex No No
--- NOTE | 2019-04-26 05:39 | PDOC.BPN ---
<Salina Vicente - Last Filed: 04/26/19 05:38> - Brief Progress Note Pt still having colicky abdominal pain, but nausea has improved. She was sleeping comfortably when we walked in. Bloodwork showed leukocytosis, but pt afebrile and likely has gastroenteritis. Recommend d/c home with zofran and encouraged fluid intake. <Mynor Stahl - Last Filed: 04/26/19 06:17> Addendum - Attending - Attending Attestation Date/Time: 04/26/19 0617 I personally evaluated the patient and discussed the management with Dr. Vicente. I agree with the Assessment and Plan documented above.
== END | disposition home or self-care (01) ==
LOC: L&D/OP 22:54
PROVIDERS: ATTEND Family Medicine
DX: O99.613 Diseases of the digestive system complicating pregnancy, third trimester (principal); K52.9 Noninfective gastroenteritis and colitis, unspecified; O99.283 Endocrine, nutritional and metabolic diseases complicating pregnancy, third trimester; E86.0 Dehydration; O34.219 Maternal care for unspecified type scar from previous cesarean delivery; F15.11 Other stimulant abuse, in remission; F13.11 Sedative, hypnotic or anxiolytic abuse, in remission; Z3A.36 36 weeks gestation of pregnancy; Z88.5 Allergy status to narcotic agent
CPT/HCPCS: 36415; 80053; 81001; 85025; 96360; 99283; J2405

== ENCOUNTER 2019-05-24 14:02 | Inpatient (IN) | payer OTHER ==
[2019-05-24] MEDS ORDERED: hydrALAZINE 20 MG/ML VIAL SLOW IVP PRN ×2 (14:41→16:14)
--- NOTE | 2019-05-24 14:43 | PDOC.FPROB ---
FMR OB H&P: HPI - History of Present Illness Chief Complaint: Abdominal Pain Indentification: 24yo @ 39.3wks by LMP History of Present Illness: 24yo @39.3wks presents for edema and pelvic cramping. Denies vaginal bleeding/discharge, LOF, contractions. Endorses FM. Denies elevated BPs, vision changes, RUQ pain. Endorses headache. Primary Care Physician: Dr Rose FMR OB H&P: Current - Care : 4 Para: 2011 Gestational age: 39.3 Due date: 05/28/2019 Dating Criteria: Reports 1T US at [facility]- no records. Only US on file at 35.3wks - OB Labs Blood type: A RH: positive Antibody Screen: negative HIV: negative RPR: negative HepBsAg: negative Rubella: immune Urine drug screen: negative Gonorrhea: negative (08/2018) Chlamydia: negative (08/2018) 1 hour gtt: 111 GBS: negative FMR OB H&P: History - Past Medical History PMH: Denies - OB History OB History: 2 term C/S - Surgical History Sx History: C/S x2 - Social History Social History: Denies tobacco or alcohol use. Report marjuana and meth abuse throughout but no drug use since Feb when she went to rehab - Family History Family History: Father- seizures Mother- kidney disease FMR OB H&P: Medications - Current Home Medications: Medication Instructions Recorded Confirmed Type 21/Iron Fu/Folic Acid 1 tablet PO DAILY 07/27/17 05/24/19 History [ Complete Caplet] Acetaminophen [Tylenol Regular 650 mg PO Q6H tab 08/11/17 05/24/19 Rx Strength] Ondansetron [Zofran ODT] 4 mg PO Q4HR PRN #10 tab 04/26/19 05/24/19 Rx Allergies/Adverse Reactions: Allergies Allergy/AdvReac Type Severity Reaction Status Date / Time hydrocodone AdvReac Emesis Verified 05/24/19 14:38 FMR OB H&P: ROS - Review of Systems General: denies: fever/chills, fatigue Eyes: denies: vision changes, double vision, scotomas, floaters ENT: denies: nasal congestion, rhinorrhea, sore throat Cardiovascular: reports: edema. denies: chest pain Respiratory: denies: cough, congestion, shortness of breath Gastrointestinal: denies: abdominal pain, nausea, vomiting, diarrhea Genitourinary (Female): denies: dysuria, vaginal discharge, vaginal bleeding, contractions Neurologic: denies: weakness, headache Integumentary: denies: itching, rash FMR OB H&P: Vital Signs - Maternal Vital signs: Selected Entries 05/24/19 14:37 Temperature 98.0 F Pulse Rate 98 Blood Pressure 119/67 [Semi-Fowlers] Respiratory 18 Rate - Heart Tones Baseline: 140 Variability: moderate Acceleration: absent Deceleration: absent Category: category 2 FMR OB H&P: Physical Exam - Physical Exam General: NAD, awake, alert and oriented HEENT: normocephalic and atraumatic, MMM, conjunctiva clear, oropharynx clear Neck: supple, trachea midline Heart: RRR, normal S1/S2, pulses present, other (nonpitting edema, fingers & LE) General: CTAB, no respiratory distress, no wheezing Abdomen: soft, gravid, fundus(cm), non-tender, bowel sound present Musculoskeletal: pulses present, no misalignment/asymmetry, no atrophy Neurological: no focal deficit Skin: good tugor, no jaundice Lymphatic: no petechia Psychiatric: intact recent and remote memory, good judgement and insight, normal mood and affect - Pelvic Exam Vulva: normal hair distribution, no lesions, no discharge SVE: c/t/h Estimated Weight: 8 lbs FMR OB H&P: A/P Disposition: 24yo @ 39.3wks presents for cramping/edema sIUP term, Hx of C/S x2 - UA with no signs of infection - SVE c/t/h - Discussed case with Dr Rose as she is term and not scheduled for rLTCS. She has been dismissed from their clinic. - Initial plan to admit for C/S however due to poor dating and inability to obtain US from [facility] will schedule for C/S at 41 wks until we receive US records from [facility] to indicate otherwise Hx of Meth and Cannibas use during - Reports no use since Feb 2019 - UDS neg - CM consult after delivery Discussion: Date/Time: 05/24/19 6896 This H&P was discussed with Dr. Hodnett who agrees with the above documentation and plan. Addendum - Attending - Attending Attestation Date/Time: 05/24/19 8760 I personally evaluated the patient and discussed the management with Dr. Espinoza I agree with the History, Examination, Assessment and Plan documented above with any addition or exceptions noted below. Pt reports she was dismissed from Dr Rose's office due to noncompliance to appt keeping. Pt reports 1st trimester dating from [facility] . Report unavailable at the moment. Plan at this time is to discharge pt with plans to call back sunday. If we can secure a report of her 1st trimester dating will schedule [facility]. IF not will plan on scheduling after 41wks.
[2019-05-24 14:46] VITALS: BP 119/67; TEMP 98; BMI 34.3
[2019-05-24 15:27] LABS: Bilirubin Small (Negative); Blood, Urine Negative (Negative); Glucose, Urine (Dipstick) Negative (Negative); Leukocyte Negative (Negative); Nitrite Negative (Negative); Protein, Urine (Dipstick) 30 mg/dL (Neg-Trace)
[2019-05-24 15:31] LABS: WBC/HPF 0-3 HPF (0-3)
[2019-05-24 15:32] LABS: Clarity Clear (Clear); Urine Culture Reflex No No
[2019-05-24 15:38] LABS: Amphetamine Not Detected (NotDetected); Bacteria/HPF 1+ HPF (None Seen); Barbiturates Screen Not Detected (NotDetected); Benzodiazepine Screen Not Detected (NotDetected); Cocaine Metabolite Screen Not Detected (NotDetected); Medtox Control Line Valid? VALID (VALID); Medtox Reader # READER 1; Methadone Not Detected (NotDetected); Methamphetamine Not Detected (NotDetected); Opiate Screen Not Detected (NotDetected); Oxycodone Screen Not Detected (NotDetected); Phencyclidine (PCP) Not Detected (NotDetected); THC/Cannabinoid Screen Not Detected (NotDetected); Tricyclic Screen Not Detected (NotDetected)
[2019-05-24] MEDS ORDERED: Promethazine HCl 25 MG/ML VIAL IM PRN (16:14)
[2019-05-24] MEDS ORDERED: Ondansetron PF 4 MG/2 ML Vial IVP PRN (16:14)
[2019-05-24] MEDS ORDERED: Bicitra 30 ML UDCUP PO SCH (16:15)
[2019-05-24] MEDS ORDERED: CEFAZOLIN 2 GM in Premix Bag 1 BAG IVPB SCH (16:15)
[2019-05-24] MEDS ORDERED: Lactated Ringer's 1,000 ML IV SCH (16:15)
[2019-05-24] MEDS ORDERED: diphenhydrAMINE 50 MG/ML VIAL ONE (16:28)
[2019-05-24] MEDS ORDERED: PHENYLEPHRINE-NS 100 MCG/ML 10 ML SYRINGE ONE (16:28)
[2019-05-24] MEDS ORDERED: Oxytocin 10 UNITS/ML VIAL ONE (16:28)
[2019-05-24] MEDS ORDERED: MORPHINE 5 MG/10 ML PF VIAL ONE (16:28)
[2019-05-24] MEDS ORDERED: Dexamethasone 4 mg/ml Vial ONE (16:28)
[2019-05-24] MEDS ORDERED: Ketorolac Tromethamine 30 MG/ML VIAL ONE (16:28)
[2019-05-24] MEDS ORDERED: Ondansetron PF 4 MG/2 ML Vial ONE (16:28)
[2019-05-24 16:52] LABS: Hemoglobin 11.1 g/dL (12.0-16.0); Mean Corpuscular HGB CONC 34.2 g/dL (32.0-36.0); Mean Corpuscular Hemoglobin 28.6 pg (27.0-31.0); Mean Corpuscular Volume 83.6 fL (78.0-98.0); Mean Platelet Volume 8.8 fL (7.4-10.4); Platelet Count 163 thou/uL (130-400); RBC Distribution Width 12.9 % (11.5-14.5); White Blood Cell (WBC) Count 12.6 thou/uL (4.8-10.8)
[2019-05-24 17:25] LABS: Syphilis Antibody Nonreactive (Nonreactive); Syphilis Antibody Index 0.03 S/CO (<1.00 Non-Reactive)
[2019-05-24 17:26] LABS: HBSAg Index 0.19 S/CO (0-0.99); Hep B Surf Ag Non-Reactive S/CO (NonReactive)
--- NOTE | 2019-05-24 18:24 | ULT ---
Limited obstetrical ultrasound: 05/24/2019 COMPARISON: None HISTORY: 24-year-old female, evaluate amniotic fluid index and placenta TECHNIQUE: Multiplanar grayscale sonographic imaging of the gravid uterus obtained. FINDINGS: A single intrauterine gestation is present demonstrating a vertex presentation. The placent a is located anteriorly, demonstrating no evidence for previa or abruption. The heart rate is 116 bpm. The head obscures the cervix. Amniotic fluid index is estimated at 10.8 cm. IMPRESSION: Single live intrauterine gestation as detailed above.
== END 2019-05-24 20:30 | disposition home or self-care (01) | DRG 833 ==
LOC: L&D/OP 14:02 → L&D 16:46
PROVIDERS: ADMIT Family Medicine; ATTEND Family Medicine
DX: O26.893 Other specified pregnancy related conditions, third trimester (principal); Z3A.39 39 weeks gestation of pregnancy; R10.2 Pelvic and perineal pain; O34.219 Maternal care for unspecified type scar from previous cesarean delivery
CPT/HCPCS: 36415; 76815; 80306; 81001; 85027; 86780; 86850; 86900; 86901; 87340; 99285; J1100; J1200; J1885; J2274; J2405; J2590

== ENCOUNTER 2019-06-13 05:46 | Inpatient (IN) | payer OTHER ==
[~2019-06-13 05:46] MED LIST changes: -Lactated Ringer's 1,000 ML IV SCH; -Ondansetron ODT 8 MG TAB SL SCH; +Ondansetron PF 4 MG/2 ML Vial IVP PRN; -Ondansetron PF 4 MG/2 ML Vial ONE; +Promethazine HCl 25 MG/ML VIAL IM PRN
--- NOTE | 2019-06-13 05:50 | PDOC.FPROB ---
FMR OB H&P: HPI - History of Present Illness Chief Complaint: scheduled section Indentification: 24 y/o @ 39.0 WGA by 6.3 wk sono History of Present Illness: Pt denies any ctx, LOF, VB, d/c. Endorses movement. Primary Care Physician: Dr. Espinoza, Dr. Vicente - [facility] FMR OB H&P: Current - Care : 4 Para: 2011 Gestational age: 39w0d Due date: 06/20/19 Dating Criteria: 6w3d - OB Labs Blood type: A RH: positive Antibody Screen: negative HIV: negative RPR: negative HepBsAg: negative Rubella: immune Quad screen: unknown Urine drug screen: negative Gonorrhea: negative Chlamydia: negative 1 hour gtt: unknown GBS: negative (5.5 wks ago) FMR OB H&P: History - Past Medical History PMH: Denies - OB History OB History: 2 term sections - Surgical History Sx History: x2 - Social History Social History: Denies tobacco or EtOH use. Reports marijuana and methamphetamine abuse throughout , but went into rehab in February and has been clean ever since. - Family History Family History: Father - seizures Mother - kidney dz FMR OB H&P: Medications - Current Home Medications: Medication Instructions Recorded Confirmed Type 21/Iron Fu/Folic Acid 1 tablet PO DAILY 07/27/17 05/24/19 History [ Complete Caplet] Acetaminophen [Tylenol Regular 650 mg PO Q6H tab 08/11/17 05/24/19 Rx Strength] Ondansetron [Zofran ODT] 4 mg PO Q4HR PRN #10 tab 04/26/19 05/24/19 Rx Allergies/Adverse Reactions: Allergies Allergy/AdvReac Type Severity Reaction Status Date / Time hydrocodone AdvReac Emesis Verified 06/13/19 06:38 FMR OB H&P: ROS - Review of Systems General: denies: fever/chills, weight/appetite/sleep changes Eyes: denies: vision changes, double vision ENT: denies: nasal congestion, rhinorrhea Cardiovascular: denies: chest pain, edema Respiratory: denies: cough, shortness of breath Gastrointestinal: denies: abdominal pain, nausea Genitourinary (Female): denies: dysuria, vaginal discharge, contractions, vaginal pressure Musculoskeletal: denies: pain, swelling Neurologic: denies: numbness, weakness Integumentary: denies: itching, rash Breast: denies: lumps, bumps Endocrine: denies: cold intolerance, heat intolerance Hematologic/Lymphatic: denies: prolonged or excessive bleeding, enlarged lymph nodes Psychological: denies: depression, anxiety FMR OB H&P: Vital Signs - Maternal Vital signs: BP 124/73, HR 88, O2 sat 99% on RA - Heart Tones Baseline: 130 Variability: moderate Acceleration: absent Deceleration: absent Category: category 1 [place] contractions every: none FMR OB H&P: Physical Exam - Physical Exam General: NAD, awake, alert and oriented HEENT: normocephalic and atraumatic, EOMI, MMM, conjunctiva clear, grossly normal vision, grossly normal hearing Neck: supple, FROM Heart: pulses present, no edema General: no respiratory distress, no retractions Abdomen: soft, gravid, non-tender Musculoskeletal: normal gait and station, pulses present Neurological: no focal deficit Skin: good tugor, capillary refill <2 seconds Lymphatic: no unusual bruising or bleeding, no purpura Psychiatric: intact recent and remote memory, good judgement and insight FMR OB H&P: A/P - Problem List (1) Term Current Visit: Yes Status: Acute Code(s): Z34.90 - ENCNTR FOR SUPRVSN OF NORMAL , UNSP, UNSP TRIMESTER (2) H/O section Current Visit: Yes Status: Acute Code(s): Z98.891 - HISTORY OF UTERINE SCAR FROM PREVIOUS SURGERY (3) Methamphetamine abuse in remission Current Visit: Yes Status: Acute Code(s): F15.11 - OTHER STIMULANT ABUSE, IN REMISSION Disposition: 1. Term H/O section -Admit to L&D -Consult anesthesia for spinal -NPO -Ancef 2g - monitoring 2. H/O methamphetamine abuse Pt reports being clean since rehab in February -Check UDS 3. Pt with poor care Was fired from prior provider due to poor f/u -Check fasting glucose this AM due to no GTT and S>D Discussion: Date/Time: 06/13/19 0550 This H&P was discussed with Dr. Roblero who agrees with the above documentation and plan. Signature: Salina Vicente MD, PGY-3 Addendum - Attending - Attending Attestation Date/Time: 06/13/19 5353 I personally evaluated the patient and discussed the management with Dr. Vicente. I agree with the History, Examination, Assessment and Plan documented above with any addition or exceptions noted below. @ 39w0d by ~6w sono who presented LTC in our clinic. H/o ELISA, in remission. Tobacco use. On sono anterior placenta, grade 3, above lower segment. Cephalic fetus. Discussed r/b/a of repeat to include pain, bleeding, infection, damage to bowel, bladder, other internal organs, need for transfusion, prolonged hospitalization, additional surgery, including more morbid outcomes. She consents and desires to proceed.
[2019-06-13] MEDS ORDERED: Bicitra 30 ML UDCUP PO SCH (06:00)
[2019-06-13] MEDS ORDERED: CEFAZOLIN 2 GM in Premix Bag 1 BAG IVPB SCH (06:15)
[2019-06-13 06:36] VITALS: BMI 36.0
[2019-06-13 06:49] LABS: Hemoglobin 10.7 g/dL (12.0-16.0); Mean Corpuscular HGB CONC 33.9 g/dL (32.0-36.0); Mean Corpuscular Hemoglobin 27.5 pg (27.0-31.0); Mean Corpuscular Volume 81.1 fL (78.0-98.0); Mean Platelet Volume 8.9 fL (7.4-10.4); Platelet Count 180 thou/uL (130-400); RBC Distribution Width 13.6 % (11.5-14.5); Red Blood Cell (RBC) Count 3.87 mill/uL (4.20-5.40); White Blood Cell (WBC) Count 13.3 thou/uL (4.8-10.8)
[2019-06-13] MEDS ORDERED: Oxytocin 10 UNITS/ML VIAL ONE ×3 (06:59→08:45)
[2019-06-13] MEDS ORDERED: Ondansetron PF 4 MG/2 ML Vial ONE ×2 (07:00→08:12)
[2019-06-13] MEDS ORDERED: MORPHINE 5 MG/10 ML PF VIAL ONE (07:01)
[2019-06-13 07:02] LABS: Glucose 82 mg/dL (70-105)
[2019-06-13] MEDS ORDERED: Meperidine HCl/PF 25 MG/ML VIAL SLOW IVP PRN (07:15)
[2019-06-13] MEDS ORDERED: HYDROmorphone 2 MG/ML VIAL SLOW IVP PRN (07:15)
[2019-06-13] MEDS ORDERED: Ondansetron PF 4 MG/2 ML Vial IVP PRN (07:15)
[2019-06-13] MEDS ORDERED: Naloxone HCl 0.4 mg/ml Vial IVP PRN ×2 (07:15)
[2019-06-13] MEDS ORDERED: diphenhydrAMINE 50 MG/ML VIAL IVP PRN (07:15)
[2019-06-13] MEDS ORDERED: L&D-Morphine 4 MG/ML VIAL SLOW IVP PRN (07:15)
[2019-06-13] MEDS ORDERED: Ketorolac Tromethamine 30 MG/ML VIAL IVP SCH (07:15)
[2019-06-13] MEDS ORDERED: Promethazine HCl 25 MG SUPP PR PRN (07:15)
[2019-06-13] MEDS ORDERED: Promethazine HCl 25 MG/ML VIAL IM PRN (07:15)
[2019-06-13] MEDS ORDERED: Communication Order-Pharmacy FS SCH (07:15)
[2019-06-13] MEDS ORDERED: Ondansetron HCl/PF 4 MG/2 ML Vial IVP PRN (07:15)
[2019-06-13] MEDS ORDERED: Naloxone HCl 0.4 mg/ml Vial IV PRN (07:15)
[2019-06-13 07:30] LABS: Amphetamine Not Detected (NotDetected); Barbiturates Screen Not Detected (NotDetected); Benzodiazepine Screen Not Detected (NotDetected); Cocaine Metabolite Screen Not Detected (NotDetected); Medtox Control Line Valid? VALID (VALID); Medtox Reader # READER 4; Methadone Not Detected (NotDetected); Methamphetamine Not Detected (NotDetected); Opiate Screen Not Detected (NotDetected); Oxycodone Screen Not Detected (NotDetected); Phencyclidine (PCP) Not Detected (NotDetected); THC/Cannabinoid Screen Not Detected (NotDetected); Tricyclic Screen Not Detected (NotDetected)
[2019-06-13 07:42] LABS: Syphilis Antibody Nonreactive (Nonreactive); Syphilis Antibody Index 0.03 S/CO (<1.00 Non-Reactive)
[2019-06-13 07:43] LABS: HBSAg Index 0.26 S/CO (0-0.99); Hep B Surf Ag Non-Reactive S/CO (NonReactive)
[2019-06-13] MEDS ORDERED: PHENYLEPHRINE-NS 100 MCG/ML 10 ML SYRINGE ONE (07:51)
[2019-06-13] MEDS ORDERED: EPHEDRINE 25 MG/5 ML SYRINGE ONE (07:54)
[2019-06-13] MEDS ORDERED: Meperidine HCl/PF 25 MG/ML VIAL ONE (08:32)
[2019-06-13] MEDS ORDERED: Fentanyl 100 MCG/2 ML VIAL ONE ×2 (08:35→09:04)
[2019-06-13] MEDS ORDERED: Midazolam HCl 2 mg/2 ml Vial ONE (09:05)
--- NOTE | 2019-06-13 09:33 | PDOC.OPDEL ---
Addendum entered and electronically signed by Salina Vicente MD 06/13/19 09:34: Time of delivery: 08 on 06/13/19 Original Note: OB Operative/Delivery Note Delivery Dr/Surgeon: Dr. Espinoza, Dr. Vicente, and Dr. Pastrana with Dr. Roblero attending Pre-Delivery Diagnosis: scheduled section Procedure/Post Delivery Dx: repeat low transverse CS Weeks gestation: 39 Anesthesia: spinal - Findings A Sex: male - Additional Findings/Plan Placenta delivered: manual removal findings: low transverse hysterotomy without extension Compilations/Other Findings: Preoperative Diagnosis: 1)Term intrauterine 2)Previous c-sectionx2 3)Incomplete Care 4)h/o drug abuse during Postoperative Diagnosis: 1)Term intrauterine , delivered by vacuum assisted delivery 2)Previous c-sectionx2 3)Incomplete Care 4)h/o drug abuse during 5)Uterine adhesions 6)Uterine window Anesthesia: spinal Indications: The patient is a 24 year old female at 39.0 weeks gestation who presents for a repeat scheduled . Procedure in Detail: After risks, benefits, and alternatives were explained to the patient, she gave informed consent. Pre-operative antibiotics included Cefazolin 2 gram IV. The patient was taken to the operating room and spinal anesthesia was initiated. She was placed in the supine position with a left tilt and prepped and draped in usual sterile fashion. A Pfannenstiel incision was made with a scalpel and carried down to the level of the fascia which was sharply nicked. The fascial cut was extended bilaterally with Stearns scissors. The inferior and superior edges of the cut fascial edges were elevated with Rhina clamps and the underlying rectus muscles were sharply and bluntly dissected free. The recti were divided sharply and with the bovie and retracted manually. The peritoneum was entered bluntly and retracted manually. The bladder was noted to be adhesed to the lower uterine segment. Bladder flap was created with Metzenbaum scissors, which retracted the bladder off the uterus. The sandro O retractor was placed. A uterine window was noted. A low transverse score was made with the scalpel and the uterus was entered in the midline bluntly. Clear fluid was seen. The hysterotomy was extended manually in a cephalocaudal fashion. The was noted to be vertex in the occipitoposterior position and was unable to be delivered with fundal pressure. Vacuum was applied to the vertex and there were two pop-offs. At this time the rectus and skin were extended laterally on both sides to allow more space. The was then delivered with fundal pressure. Mouth and nares were bulb suctioned. Cord clamped and cut and large appearing male infant was handed to waiting nurse. Cord blood was obtained. Placenta was manually extracted, found to be intact with 3 vessel cord and sent to lab for pathology. The endometrium was curetted with a dry lap. The uterus was closed with a running locking #1 Monocryl suture. Following this hemostasis was noted. The rectus was examined and the left lateral incision was repaired with #1 monocryl suture in a horizontal mattress. There was a bleeding area on the rectus that was repaired with 3-0 vicryl in a [id number] suture. There were several small oozing areas that were cauterized with the bovie on the rectus and periteoneal edge. The uterus was reinspected and there was a oozing area from the bladder flap that was sutured with a 3-0 vicryl suture in a figure of eight. Floseal was then placed over the edge of the bladder flap and the hysterotomy and pressure was held for 3 minutes. Following this hemostasis was achieved. The fascia was closed with a running non-locking 0-PDS suture. The subcutaneous tissue was irrigated and there were a few bleeders that were cauterized with the bovie. The subcutaneous layer was approximated with 3-0 plain gut interrupted suture. The skin was approximated with omar and a pressure dressing was placed. All counts were correct. The patient tolerated the procedure well and was taken to the recovery room in stable condition. Quantitative Blood Loss: 555 ml Complications: None Specimens: Cord blood sent to lab for blood type, placenta sent for pathology Findings: Large appearing male with apgars of 8&9 at 1 and 5 minutes respectively went to NICU for respiratory distress. Drains: Hollis to gravity draining clear urine Post delivery plan: routine recovery Addendum - Attending - Attending Attestation Date/Time: 06/13/19 1057 I was present and scrubbed for the entire surgery. Good hemostasis. Right rectus not cut. Both hemostatic upon multiple checks. Counts correct. NB to NICU on CPAP.
[2019-06-13] MEDS ORDERED: Ketorolac Tromethamine 30 MG/ML VIAL ONE (09:57)
[2019-06-13] MEDS: Lactated Ringer's 1,000 ML IV SCH ×2 (10:00→20:00)
[2019-06-13] MEDS: Ketorolac Tromethamine 30 MG/ML VIAL IVP PRN ×3 (10:00→21:04)
[2019-06-13] MEDS ORDERED: Milk Of Magnesia 30 ML UDCUP PO PRN (11:33)
[2019-06-13] MEDS ORDERED: Simethicone Chewable 80 MG TAB PO PRN (11:33)
[2019-06-13] MEDS ORDERED: hydrALAZINE 20 MG/ML VIAL SLOW IVP PRN (11:33)
[2019-06-13] MEDS ORDERED: Adacel (T-DAP) 0.5 ML SYRINGE IM ONE (11:33)
[2019-06-13] MEDS ORDERED: Lanolin Ointment 7 GM TUBE TOP PRN (11:33)
--- NOTE | 2019-06-13 14:06 | PDOC.BPN ---
- Brief Progress Note Pt resting comfortably in bed. Has patrick cath in presently. Has not been up yet. Pain well controlled per pt. Vitals: 98.2 F, 82 HR, 16 RR, 99% on RA, BP 120/61 gen: NAD, resting comfortably ext: no edema, neg homans sign abd: appropriately TTP, uterus firm at umbilicus. Surgical incision covered, bandage, clean/dry/intact. : moderate lochia present. Continue routine PP care Strict I/O f/u H/H in AM. vitals stable.
[2019-06-13] MEDS: Ferrous Sulfate 325 MG TAB PO SCH (14:21)
[2019-06-13] MEDS: Docusate 100 MG CAP PO SCH (20:00)
[2019-06-14] MEDS: Ketorolac Tromethamine 30 MG/ML VIAL IVP PRN (03:15)
--- NOTE | 2019-06-14 04:30 | PDOC.OBPPN ---
FMR OB PN: Subj - Interval History Day: [age] y/o @ 39.0 WGA delivered via rLTCS @ 0822 on 06/12. She reports she has not been up out of bed yet. She reports she has lower abdominal pain that is worse when she is moving and is improved with medication. She has minimal lochia. She has tolerated clear liquids without any N/V. She still has her patrick in place. She denies SOB, chest pain, H/A, vision changes. FMR OB PN: Obj - Maternal Vital signs: BP: 117/66 HR: 96 RR: 16 Tmax: 99.1 Pox: 97% on RA Wt: 95.25kg - Urine output I&O: 06/12/19 06/13/19 06/14/19 06:59 06:59 06:59 Output Total 1045 Balance -1045 FMR OB PN: Exam - Physical Exam General: NAD, awake, alert and oriented HEENT: normocephalic and atraumatic, MMM, conjunctiva clear, grossly normal vision, grossly normal hearing Neck: supple, no LAD Heart: RRR, normal S1/S2, no murmurs/rubs/gallops, pulses present, no edema General: CTAB, no respiratory distress, good air movement, no rales/rhonchi, no wheezing Abdomen: soft, fundus(cm) (firm below umbilicus) Musculoskeletal: pulses present Neurological: no focal deficit Skin: good tugor, capillary refill <2 seconds : bandage intact, no erythema, no edema, no drainage, appropriately tender Lymphatic: no unusual bruising or bleeding, no purpura Psychiatric: intact recent and remote memory, good judgement and insight FMR OB PN: Data - Labs Lab results: Laboratory Results - last 24 hr 06/13/19 06/13/19 06/13/19 06:09 06:09 06:09 WBC 13.3 H RBC 3.87 L Hgb 10.7 L Hct 31.4 L MCV 81.1 MCH 27.5 MCHC 33.9 RDW 13.6 Plt Count 180 MPV 8.9 Glucose Urine Opiates Screen Ur Oxycodone Screen Urine Methadone Screen Ur Propoxyphene Screen Ur Barbiturates Screen Ur Tricyclics Screen Ur Phencyclidine Scrn Ur Amphetamines Screen U Methamphetamines Scrn U Benzodiazepines Scrn U Cocaine Metab Screen U Cannabinoids Screen Drug Screen Comment Syphilis IgG/IgM Ab Nonreactive Hep Bs Antigen Non-Reactive Blood Type Antibody Screen 06/13/19 06/13/19 06/13/19 06:09 06:09 06:45 WBC RBC Hgb Hct MCV MCH MCHC RDW Plt Count MPV Glucose 82 Urine Opiates Screen Not Detected Ur Oxycodone Screen Not Detected Urine Methadone Screen Not Detected Ur Propoxyphene Screen Not Detected Ur Barbiturates Screen Not Detected Ur Tricyclics Screen Not Detected Ur Phencyclidine Scrn Not Detected Ur Amphetamines Screen Not Detected U Methamphetamines Scrn Not Detected U Benzodiazepines Scrn Not Detected U Cocaine Metab Screen Not Detected U Cannabinoids Screen Not Detected Drug Screen Comment Syphilis IgG/IgM Ab Hep Bs Antigen Blood Type A POSITIVE Antibody Screen NEGATIVE FMR OB PN: A/P - Problem List (1) Term Current Visit: Yes Status: Acute Code(s): Z34.90 - ENCNTR FOR SUPRVSN OF NORMAL , UNSP, UNSP TRIMESTER (2) H/O section Current Visit: Yes Status: Acute Code(s): Z98.891 - HISTORY OF UTERINE SCAR FROM PREVIOUS SURGERY (3) Methamphetamine abuse in remission Current Visit: Yes Status: Acute Code(s): F15.11 - OTHER STIMULANT ABUSE, IN REMISSION Disposition: 1. Term Delivered via section -Continue routine PP care -PNV -Ibuprofen and tylenol for pain, pt has allergy to hydrocodone -Abdominal binder if desired -Encourage ambulation -Advance diet as tolerated -AM H/H pending 2. h/o methamphetamine abuse Pt denies any drug use since rehab in February. Negative UDS on admission -CM on board 3. Tobacco abuse -Counseled on cessation Dispo: Continue to monitor on Discussion: Date/Time: 06/14/19 2584 This H&P was discussed with Dr. Roblero who agrees with the above documentation and plan. Signature: Salina Vicente MD, PGY-3 Addendum - Attending - Attending Attestation Date/Time: 06/14/19 1228 I personally evaluated the patient and discussed the management with the team. I agree with the History, Examination, Assessment and Plan documented above with any addition or exceptions noted below. Overall doing well this AM. Planning private adoption, has a family in place. Feels supported. Pain is moderately well managed. Continue routine pp care and likely dc tomorrow vs Sunday.
[2019-06-14 06:14] LABS: Hemoglobin 9.1 g/dL (12.0-16.0); Mean Corpuscular HGB CONC 32.9 g/dL (32.0-36.0); Mean Corpuscular Hemoglobin 27.1 pg (27.0-31.0); Mean Corpuscular Volume 82.4 fL (78.0-98.0); Mean Platelet Volume 8.5 fL (7.4-10.4); Platelet Count 140 thou/uL (130-400); RBC Distribution Width 13.7 % (11.5-14.5); Red Blood Cell (RBC) Count 3.36 mill/uL (4.20-5.40); White Blood Cell (WBC) Count 14.3 thou/uL (4.8-10.8)
[2019-06-14] MEDS: Docusate 100 MG CAP PO SCH ×2 (09:41→20:16)
[2019-06-14] MEDS: Ferrous Sulfate 325 MG TAB PO SCH ×2 (09:41→16:35)
[2019-06-14] MEDS: Acetaminophen 325 MG TAB PO PRN ×3 (09:42→20:16)
[2019-06-14] MEDS: Polyethylene Glycol 3350 17 GM Packet PO SCH (09:42)
[2019-06-14] MEDS: Prenatal Vitamin 1 TAB PO SCH (09:42)
[2019-06-14] MEDS: Ibuprofen 800 MG TAB PO SCH ×2 (14:07→21:03)
[2019-06-15] MEDS: Ibuprofen 800 MG TAB PO SCH ×2 (04:54→13:40)
--- NOTE | 2019-06-15 05:37 | PDOC.OBPPN ---
FMR OB PN: Subj - Interval History Day: [age] y/o @ 39.0 WGA delivered via rLTCS @ 0822 on 06/12. She reports ambulating to the bathroom and into the hallways. She reports she has lower abdominal pain that is worse when she is moving and is improved with medication or the heating pad. She has minimal lochia. She has tolerated regular diet without any N/V. She is voiding on her own. She endorses flatus. She denies SOB, chest pain, H/A, vision changes. FMR OB PN: Obj - Maternal Vital signs: BP: 135/71 HR: 96 RR: 12 Tmax: 98.2 Pox: 97% on RA Wt: 95kg - Urine output I&O: 06/13/19 06/14/19 06/15/19 06:59 06:59 06:59 Intake Total 1250 940 Output Total 3945 2000 Balance -6475 -1060 FMR OB PN: Exam - Physical Exam General: NAD, awake, alert and oriented HEENT: normocephalic and atraumatic, MMM, conjunctiva clear, grossly normal vision, grossly normal hearing Neck: supple, no LAD Heart: pulses present, no edema General: no respiratory distress Abdomen: soft, fundus(cm) (firm below umbilicus) Musculoskeletal: pulses present, FROM in all four extremities Neurological: no clonus, no focal deficit Skin: good tugor, capillary refill <2 seconds : incision healing well (omar in place), no erythema, no edema, no drainage, appropriately tender Lymphatic: no unusual bruising or bleeding, no purpura Psychiatric: intact recent and remote memory, good judgement and insight FMR OB PN: Data - Labs Lab results: Laboratory Results - last 24 hr 06/14/19 05:59 WBC 14.3 H RBC 3.36 L Hgb 9.1 L Hct 27.7 L MCV 82.4 MCH 27.1 MCHC 32.9 RDW 13.7 Plt Count 140 MPV 8.5 FMR OB PN: A/P - Problem List (1) Term Current Visit: Yes Status: Acute Code(s): Z34.90 - ENCNTR FOR SUPRVSN OF NORMAL , UNSP, UNSP TRIMESTER (2) H/O section Current Visit: Yes Status: Acute Code(s): Z98.891 - HISTORY OF UTERINE SCAR FROM PREVIOUS SURGERY (3) Methamphetamine abuse in remission Current Visit: Yes Status: Acute Code(s): F15.11 - OTHER STIMULANT ABUSE, IN REMISSION Disposition: 1. Term Delivered via section -Continue routine PP care -PNV -Ibuprofen and tylenol for pain, pt has allergy to hydrocodone -Abdominal binder if desired -Encourage ambulation 2. h/o methamphetamine abuse Pt denies any drug use since rehab in February. Negative UDS on admission -CM on board -Planning private adoption 3. Tobacco abuse -Counseled on cessation 4. Anemia Hb 9.1 -Iron Plan for d/c home today or tomorrow Discussion: Date/Time: 06/15/19 0537 This H&P was discussed with Dr. Roblero who agrees with the above documentation and plan. Signature: Salina Vicente MD, PGY-3
[2019-06-15] MEDS: Acetaminophen 325 MG TAB PO PRN (05:57)
[2019-06-15] MEDS: Prenatal Vitamin 1 TAB PO SCH (09:29)
[2019-06-15] MEDS: Ferrous Sulfate 325 MG TAB PO SCH (09:29)
[2019-06-15] MEDS: Polyethylene Glycol 3350 17 GM Packet PO SCH (09:29)
[2019-06-15] MEDS: Docusate 100 MG CAP PO SCH (09:30)
[2019-06-15 11:18] VITALS: BP 118/62; TEMP 98
== END 2019-06-15 14:20 | disposition home or self-care (01) | DRG 787 ==
LOC: L&D 05:46 → 3SW 12:08
PROVIDERS: ADMIT Obstetrics & Gynecology; ATTEND Obstetrics & Gynecology
PROC: 10D00Z1 Extraction of Products of Conception, Low, Open Approach (ICD-10-PCS; principal; 2019-06-13)
DX: O34.211 Maternal care for low transverse scar from previous cesarean delivery (principal); O99.323 Drug use complicating pregnancy, third trimester; F15.11 Other stimulant abuse, in remission; Z3A.39 39 weeks gestation of pregnancy; Z37.0 Single live birth; O99.333 Smoking (tobacco) complicating pregnancy, third trimester; F17.200 Nicotine dependence, unspecified, uncomplicated; O90.81 Anemia of the puerperium; D64.9 Anemia, unspecified
CPT/HCPCS: 36415; 51702; 80306; 82947; 85027; 86780; 86850; 86900; 86901; 87340; 88307; J0690; J1885; J2175; J2250; J2274; J2405; J2590; J3010

== ENCOUNTER 2019-10-02 15:10 | Emergency (ER) | payer OTHER ==
[2019-10-03 12:56] LABS: SARS-CoV-2 MS2 Positive; SARS-CoV-2 N Gene Negative; SARS-CoV-2 S Gene Negative; SARS-CoV-2 by NAA Not Detected (NotDetected); SARS-CoV-2 orf1ab Negative
== END 2019-10-02 15:19 | disposition home or self-care (01) ==
LOC: ERS 15:10
DX: R11.0 Nausea (principal); Z20.828 Contact with and (suspected) exposure to other viral communicable diseases; F41.9 Anxiety disorder, unspecified; F17.210 Nicotine dependence, cigarettes, uncomplicated
CPT/HCPCS: 87635; 99283; U0003

== ENCOUNTER 2021-09-13 21:34 | Emergency (ER) | payer OTHER | END 2021-09-14 00:04 | disposition left against medical advice (07) | LOC: ERS 21:34 | DX: Z53.21 Procedure and treatment not carried out due to patient leaving prior to being seen by health care provider (principal) ==

== ENCOUNTER 2022-04-05 03:55 | Emergency (ER) | payer OTHER ==
[2022-04-05 05:11] LABS: Bilirubin Negative (Negative); Blood, Urine Negative (Negative); Clarity Clear (Clear); Glucose, Urine (Dipstick) Normal (Negative); Ketone, Urine Negative (Negative); Leukocyte Negative Leu/uL (Negative); Nitrite Negative (Negative); Protein, Urine (Dipstick) Negative (Neg-Trace); Specific Gravity, Urine 1.029 (1.002-1.036); pH, Urine 6.5 (5.0-9.0)
[2022-04-05] MEDS ORDERED: Ketorolac Tromethamine 30 MG/ML VIAL ONE (06:30)
[2022-04-05] MEDS ORDERED: Ondansetron PF 4 MG/2 ML Vial ONE (06:30)
[2022-04-05 07:14] LABS: BHCG - Serum Negative (NEGATIVE); Pregs Control Background? CLEAR/WHITE (CLR/WHITE); Pregs Control Bar Appear? YES (CONTROL BAR)
[2022-04-05 07:20] LABS: Hemoglobin 13.7 g/dL (12.0-16.0); Mean Corpuscular HGB CONC 33.8 g/dL (32.0-36.0); Mean Corpuscular Hemoglobin 30.4 pg (27.0-31.0); Mean Corpuscular Volume 90.1 fl (78.0-98.0); Mean Platelet Volume 8.5 fL (7.4-10.4); Platelet Count 122 10x3/uL (130-400); RBC Distribution Width 12.1 % (11.5-14.5); Red Blood Cell (RBC) Count 4.51 mill/uL (4.20-5.40); White Blood Cell (WBC) Count 8.9 10x3/uL (4.8-10.8)
[2022-04-05 07:30] LABS: ALT (SGPT) 14 U/L (8-55); AST (SGOT) 16 U/L (5-34); Albumin 4.4 g/dL (3.5-5.0); Alkaline Phosphatase 65 U/L (40-110); Anion Gap 15 mmol/L (10-20); BUN (Urea Nitrogen) 18 mg/dL (7.0-18.7); Bilirubin, Total 0.2 mg/dL (0.2-1.2); Calc. Creatinine Clearance 0 mL/min (70-130); Calcium 9.7 mg/dL (7.8-10.44); Carbon Dioxide 24 mmol/L (22-29); Chloride 103 mmol/L (98-107); Estimated GFR 101; Globulin 2.6 g/dL (2.4-3.5); Glucose 106 mg/dL (70-105); Potassium 4.5 mmol/L (3.5-5.1); Sodium 137 mmol/L (136-145)
[2022-04-05 08:11] LABS: Band 3 % (5-11); Eosinophils 2 % (0-10); Lymphocytes 32 % (21-51); MDiff Complete? YES; Monocytes 5 % (0-10); Neutrophil 55 % (42-75); Platelet Morphology Comment Appears Decreased; RBC Morphology Normal; Reactive Lymphocytes 3 % (0-10)
== END 2022-04-05 08:20 | disposition home or self-care (01) ==
LOC: ERS 03:55
DX: E86.0 Dehydration (principal)
CPT/HCPCS: 74176; 80053; 81003; 84703; 85025; 96361; 96374; 96375; J1885; J2405